=== PATIENT | female | born 1990 | race African-American/Black ===

== ENCOUNTER 2018-12-24 06:01 | Emergency (ER) | payer MEDICAID ==
[~2018-12-24] VITALS: Ht 157.5 cm; Wt 73.0 kg
[2018-12-24] MEDS ORDERED: HYDROCODONE/ACETAMINOPHEN 5/325MG TABLET PO ONE (07:45)
[2018-12-24 08:12] VITALS: BP 127/89
== END 2018-12-24 08:33 | disposition home or self-care (01) ==
LOC: ER 06:01
DX: K12.2 Cellulitis and abscess of mouth (principal); F17.200 Nicotine dependence, unspecified, uncomplicated; J45.909 Unspecified asthma, uncomplicated; Z88.6 Allergy status to analgesic agent; Z88.5 Allergy status to narcotic agent
CPT/HCPCS: 81025; 99283

== ENCOUNTER 2019-01-30 09:39 | Inpatient (IN) | payer MEDICAID ==
[~2019-01-30] VITALS: Ht 157.5 cm; Wt 80.8 kg
[2019-01-30] MEDS ORDERED: SODIUM CHLORIDE 0.9% 1,000 ML IV SCH (09:58)
[2019-01-30] MEDS ORDERED: METHYLPREDNISOLONE SOD SUCC 125 MG/2 ML VIAL IV ONE (10:00)
[2019-01-30] MEDS ORDERED: FAMOTIDINE 20MG/2ML VIAL IV ONE (10:00)
[2019-01-30] MEDS ORDERED: DIPHENHYDRAMINE 50MG/ML VIAL IV ONE (10:00)
[2019-01-30] MEDS: ALBUTEROL (0.083%) 2.5MG/3ML NEB HHN SCH ×3 (10:10→11:10)
[2019-01-30 10:28] LABS: BASOPHILS % 0.6 % (0.0-2.0); HEMATOCRIT. 37.2 % (36.0-48.0); HEMOGLOBIN. 12.1 g/dL (12.0-16.0); LYMPHOCYTES % 10.3 % (20.0-50.0); MEAN CORPUSCULAR HEMOGLOBIN 27.5 pg (28.0-32.0); MEAN CORPUSCULAR VOLUME 84.4 fL (81.0-99.0); MEAN PLATELET VOLUME 8.3 fl (7.4-10.4); NEUTROPHILS % 84.1 % (40.0-76.0); PLATELET 238 x1000/uL (130-400)
[2019-01-30 10:35] LABS: CHLORIDE 99 mEq/L (98-107); PROTHROMBIN TIME 10.6 sec (9.6-11.0)
[2019-01-30 12:41] VITALS: BP 109/72
[2019-01-30 13:00] VITALS: BP 109/72
[2019-01-30] MEDS ORDERED: SODIUM CHLORIDE 0.45% 1,000 ML IV SCH (13:24)
[2019-01-30] MEDS ORDERED: DIPHENHYDRAMINE 50MG/ML VIAL IV PRN (13:30)
[2019-01-30] MEDS ORDERED: VISCOUS LIDOCAINE 2% 15 ML UDC MM PRN (13:30)
[2019-01-30] MEDS ORDERED: ONDANSETRON HCL 4MG/2ML INJ IV PRN (13:30)
[2019-01-30] MEDS ORDERED: IPRATROPIUM/ALBUTEROL 0.5-3(2.5)MG/3ML NEB INH PRN (13:30)
[2019-01-30] MEDS ORDERED: ACETAMINOPHEN 325MG TABLET PO PRN (13:30)
[2019-01-30] MEDS ORDERED: KCL 20MEQ/100ML PREMIX 100 ML IV NR (14:00)
[2019-01-30] MEDS ORDERED: ALBU90AE INH (14:08)
[2019-01-30] MEDS ORDERED: EPIN0.3P3 IM (14:08)
[2019-01-30] MEDS ORDERED: CEFTRIAXONE 1 G PREMIX 50 ML IV SCH (14:30)
[2019-01-30] MEDS: IPRATROPIUM/ALBUTEROL 0.5-3(2.5)MG/3ML NEB INH SCH ×2 (14:55→21:04)
[2019-01-30 16:00] VITALS: BP 111/72
[2019-01-30 20:08] VITALS: BP 116/88
[2019-01-30] MEDS: METHYLPREDNISOLONE SOD SUCC 40 MG/ML VIAL IV SCH (20:15)
[2019-01-31 00:01] VITALS: BP 112/66
[2019-01-31] MEDS: IPRATROPIUM/ALBUTEROL 0.5-3(2.5)MG/3ML NEB INH SCH ×2 (01:28→08:49)
[2019-01-31 03:41] VITALS: BP 126/77
[2019-01-31 06:39] LABS: HEMATOCRIT. 35.3 % (36.0-48.0); HEMOGLOBIN. 11.7 g/dL (12.0-16.0); MEAN CORPUSCULAR HEMOGLOBIN 28.1 pg (28.0-32.0); MEAN CORPUSCULAR VOLUME 84.5 fL (81.0-99.0); MEAN PLATELET VOLUME 8.9 fl (7.4-10.4); PLATELET 252 x1000/uL (130-400); RED BLOOD CELL COUNT 4.18 mill/uL (4.2-5.4); RED CELL DISTRIBUTION WIDTH 19.5 % (11.6-14.6)
[2019-01-31 07:29] LABS: CHLORIDE 107 mEq/L (98-107)
[2019-01-31 08:00] VITALS: BP 101/62
[2019-01-31] MEDS: METHYLPREDNISOLONE SOD SUCC 40 MG/ML VIAL IV SCH (08:48)
[2019-01-31 12:03] VITALS: BP 101/62
[2019-01-31 16:01] LABS: PLATELET ESTIMATE NORMAL
== END 2019-01-31 12:59 | disposition home or self-care (01) | DRG 141 ==
LOC: ER 09:39 → 8WST 11:16 → EDBEDREQ 11:20 → ENRESERV 11:43
PROVIDERS: ADMIT Hospitalist; ATTEND Hospitalist
DX: J45.901 Unspecified asthma with (acute) exacerbation (principal); T78.2XXA Anaphylactic shock, unspecified, initial encounter; J03.90 Acute tonsillitis, unspecified; F17.200 Nicotine dependence, unspecified, uncomplicated; F12.90 Cannabis use, unspecified, uncomplicated; Z88.6 Allergy status to analgesic agent; Z88.8 Allergy status to other drugs, medicaments and biological substances
CPT/HCPCS: 36415; 71045; 93970; 94640; 99285; J0696; J1200; J2920; J2930; J3480; J3490; J7611; J7620

== ENCOUNTER 2019-04-09 14:50 | Emergency (ER) | payer MEDICAID ==
[~2019-04-09] VITALS: Ht 157.5 cm; Wt 90.0 kg
[~2019-04-09 14:50] MED LIST: ALBU90AE INH; EPIN0.3P3 IM
[2019-04-09 16:33] LABS: BASOPHILS % 0.7 % (0.0-2.0); EOSINOPHILS % 3.2 % (0.0-5.0); HEMATOCRIT. 32.8 % (36.0-48.0); HEMOGLOBIN. 10.8 g/dL (12.0-16.0); LYMPHOCYTES % 32.8 % (20.0-50.0); MEAN CORPUSCULAR HEMOGLOBIN 29.3 pg (28.0-32.0); MEAN PLATELET VOLUME 8.4 fl (7.4-10.4); MONOCYTES % 8.6 % (2.0-8.0); NEUTROPHILS % 54.7 % (40.0-76.0); PLATELET 258 x1000/uL (130-400); RED BLOOD CELL COUNT 3.68 mill/uL (4.2-5.4); RED CELL DISTRIBUTION WIDTH 17.2 % (11.6-14.6)
[2019-04-09 16:37] LABS: CHLORIDE 109 mEq/L (98-107)
[2019-04-09 16:39] LABS: PROTHROMBIN TIME 10.4 sec (9.6-11.0)
[2019-04-09 16:41] LABS: ETHANOL BLOOD < 10 mg/dL
[2019-04-09 16:55] LABS: HCG SCREEN NEGATIVE
[2019-04-09 17:05] LABS: CLARITY URINE CLEAR (CLEAR); COLOR URINE YELLOW (YELLOW); KETONES URINE NEGATIVE (NEGATIVE); LEUKOCYTE ESTERASE URINE 3+ (NEGATIVE); NITRITE URINE NEGATIVE (NEGATIVE); OCCULT BLOOD URINE NEGATIVE (NEGATIVE); PH URINE 6.5 (4.5-8.0); PROTEIN URINE NEGATIVE (NEGATIVE); SPECIFIC GRAVITY URINE 1.016 (1.005-1.030)
[2019-04-09 17:21] LABS: *AMPHETAMINES SCREEN URINE NEGATIVE (NEGATIVE); *BARBITURATES SCREEN URINE NEGATIVE (NEGATIVE); *BENZODIAZEPINES SCREEN URINE NEGATIVE (NEGATIVE); *COCAINE SCREEN URINE NEGATIVE (NEGATIVE)
[2019-04-09 17:22] LABS: CANNABINOID URINE SCREEN NEGATIVE (NEGATIVE); METHADONE URINE SCREEN NEGATIVE (NEGATIVE); OPIATES URINE SCREEN NEGATIVE (NEGATIVE); PHENCYCLIDINE URINE SCREEN NEGATIVE (NEGATIVE)
[2019-04-09] MEDS ORDERED: LEVETIRACETAM 1000MG/100ML 100 ML IV ONE (18:45)
[2019-04-09 21:00] VITALS: BP 104/70
== END 2019-04-09 21:06 | disposition home or self-care (01) ==
LOC: ER 14:50
DX: G40.909 Epilepsy, unspecified, not intractable, without status epilepticus (principal); J45.909 Unspecified asthma, uncomplicated; Z88.6 Allergy status to analgesic agent
CPT/HCPCS: 36415; 70450; 71045; 80053; 80305; 80320; 81003; 81025; 84703; 85025; 85610; 87086; 93005; 99284; J1953; G0480

== ENCOUNTER 2019-04-23 18:51 | Emergency (ER) | payer MEDICAID ==
[~2019-04-23] VITALS: Ht 157.5 cm; Wt 77.0 kg
[2019-04-23] MEDS ORDERED: TETANUS, DIPHTHERIA, PERTUSSIS VAC/PF 0.5ML (>7YR OLD) IM ONE (20:45)
[2019-04-23 22:13] VITALS: BP 102/64
== END 2019-04-23 22:18 | disposition home or self-care (01) ==
LOC: ER 18:51
DX: S91.051A Open bite, right ankle, initial encounter (principal); G40.909 Epilepsy, unspecified, not intractable, without status epilepticus; F17.210 Nicotine dependence, cigarettes, uncomplicated; Z88.6 Allergy status to analgesic agent; W54.0XXA Bitten by dog, initial encounter; Y93.89 Activity, other specified; Y92.488 Other paved roadways as the place of occurrence of the external cause
CPT/HCPCS: 81025; 90471; 90715; 99283; Z7610

== ENCOUNTER 2019-05-05 17:15 | Emergency (ER) | payer MEDICAID ==
[~2019-05-05] VITALS: Ht 165.1 cm; Wt 59.0 kg
[2019-05-05] MEDS ORDERED: LORAZEPAM 1MG TABLET PO ONE (19:45)
[2019-05-05] MEDS ORDERED: IPRATROPIUM/ALBUTEROL 0.5-3(2.5)MG/3ML NEB HHN ONE (19:45)
[2019-05-05] MEDS ORDERED: HYDROCODONE/APAP 7.5/325MG 1 TAB TABLET PO ONE (19:45)
[2019-05-05 23:07] VITALS: BP 118/75
== END 2019-05-05 23:09 | disposition home or self-care (01) ==
LOC: ER 17:46
DX: S09.8XXA Other specified injuries of head, initial encounter (principal); S20.219A Contusion of unspecified front wall of thorax, initial encounter; R06.2 Wheezing; R56.9 Unspecified convulsions; Y08.89XA Assault by other specified means, initial encounter; Y93.9 Activity, unspecified; Y92.9 Unspecified place or not applicable
CPT/HCPCS: 70450; 71045; 81025; 94640; 99284; J7620; Z7610